=== PATIENT | male | born 2000 | race American Indian/Alaskan Native ===

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

== ENCOUNTER 2019-06-04 18:15 | Emergency (ER) | payer OTHER ==
[~2019-06-04] VITALS: Ht 182.9 cm; Wt 99.8 kg
== END 2019-06-04 20:53 | disposition home or self-care (01) ==
LOC: ER 18:15
DX: S69.82XA Other specified injuries of left wrist, hand and finger(s), initial encounter (principal); M79.642 Pain in left hand; W86.8XXA Exposure to other electric current, initial encounter; Y93.89 Activity, other specified; Y92.89 Other specified places as the place of occurrence of the external cause; Y99.8 Other external cause status